=== PATIENT | male | born 1945 | race Caucasian/White ===

== ENCOUNTER 2025-03-24 06:56 | Emergency (ER) | payer OTHER ==
[~2025-03-24] VITALS: Ht 177.8 cm; Wt 71.4 kg
[2025-03-24 07:48] LABS: BASOPHILS 0.7 % (0.2-1.2); EOSINOPHILS 0.8 % (0.8-7.0); LYMPHOCYTES 25.0 % (21.8-53.1); MCH 30.1 PG (25.7-32.2); MCHC 32.8 g/dL (32.3-36.5); MCV 91.8 fL (79.0-92.2); MONOCYTES 8.6 % (5.3-12.2); NEUTROPHILS 64.2 % (34.0-67.9); RBC 3.42 M/uL (4.63-6.08)
[2025-03-24 08:00] LABS: INR 1.16 (0.80-1.30); PROTIME 14.0 Sec (11.2-14.2)
[2025-03-24 08:11] LABS: ALT (SGPT) 17.0 U/L (14-59); AST (SGOT) 21.0 U/L (15-37); GLOMERULAR FILTRATION RATE,EST 96.0 mL/min (>60); PROTEIN, TOTAL 7.5 g/dL (6.4-8.2); UREA NITROGEN 7.0 mg/dL (7-18)
[2025-03-24] MEDS ORDERED: fentaNYL citrate 100 MCG/2 ML VIAL IV ONE ×2 (08:15→08:45)
[2025-03-24] MEDS ORDERED: HYDROCODON-ACE1 EA10 PO (08:18)
[2025-03-24] MEDS ORDERED: HEParin SOD (PORCINE) 5,000 UNIT/ML SYR IV PRN ×3 (08:45)
[2025-03-24] MEDS ORDERED: HEParin SOD (PORCINE) 5,000 UNIT/ML SYR IV ONE (08:45)
[2025-03-24] MEDS ORDERED: HEPARIN SOD,PORK IN 0.45% NACL 500 ML IV SCH (08:45)
[2025-03-24 09:46] VITALS: BP 141/66
== END 2025-03-24 09:46 ==
LOC: ED 06:56
PROVIDERS: Emergency Medicine
DX: I82.611 Acute embolism and thrombosis of superficial veins of right upper extremity (principal); Z79.01 Long term (current) use of anticoagulants; Z79.899 Other long term (current) drug therapy
CPT/HCPCS: 36415; 71045; 80053; 84484; 85025; 85060; 85610; 85730; 93971; 96374; 96375; 99285-25; J2405; J3010